=== PATIENT | male | born 1990 | race Caucasian/White ===

== ENCOUNTER 2018-02-11 19:24 | Emergency (ER) | payer OTHER ==
[2018-02-11 19:30] VITALS: BP 133/74
--- NOTE | 2018-02-11 19:49 | EDPHY ---
H & P Stated Complaint: cut R thumb on plate Source: Patient Exam Limitations: No limitations - Personal History Current Tetanus/Diphtheria Vaccine: Yes Tetanus Vaccine Date: 2016 - Medical/Surgical History Hx Asthma: No Hx Chronic Respiratory Disease: No Hx Diabetes: No Hx Cardiac Disease: No Hx Renal Disease: No Hx Cirrhosis: No Hx Alcoholism: No Hx HIV/AIDS: No Hx Splenectomy or Spleen Trauma: No Other PMH: DENIES - Social History Smoking Status: Never smoked Time Seen by Provider: 02/11/18 19:49 HPI/ROS: HPI: This is a 27-year-old male who presents with Chief Complaint: cut R thumb on plate Location: Right thumb Quality: Cut Duration: prior to arrival Signs and Symptoms: + bleeding, no radiation, no numbness, no weakness, no tingling, no incontinence, no decreased range of motion, no swelling, + pain, no fever Timing:acute Severity: moderate Context: Patient is right-hand dominant, presents with complaints of accidentally cutting his right thumb on a plate while washing dishes after eating dinner. He reports that his porcelain dish broke and cut himself in the webspace between the right thumb and pointer finger. Patient reports that the area bled moderately. He applied direct pressure and the bleeding stops. Patient reports that he received his tetanus booster in 2017. Patient denies any paresthesias, weakness, decreased range of motion. Modifying Factors: direct pressure Comment: ROS: see HPI Constitutional: No fever, no chills, no weight loss Eyes: No blurred vision Respiratory: No shortness of breath, no cough Cardiovascular: No chest pain Gastrointestinal: No nausea, no vomiting no diarrhea Genitourinary: No dysuria Extremities: No myalgias Neurologic: No weakness, no numbness Skin: No rashes Hematologic: No bruising, no bleeding MEDICAL/SURGICAL/SOCIAL HISTORY: Medical history: depression and ADD Surgical history: Denies Social history: employed. CONSTITUTIONAL: Extremely polite and cooperative young adult white male, awake and alert, no obvious distress HEENT: Atraumatic and normocephalic. EXTREMITIES: 2/2 pulses, strength 5/5, right thumb 2 inch, deep, simple laceration medial aspect near the MCP joint. DIP/PIP/MCP flexion/extension intact with good light touch sensation. no deformities, no clubbing, no cyanosis or edema. NEUROLOGICAL: no focal neuro deficits. GCS 15. Light touch sensation intact. SKIN: Warm and dry, no erythema. no rash. Good capillary refill. (Jovana Knox) Constitutional: Initial Vital Signs Temperature (C) 36.5 C 02/11/18 19:25 Heart Rate 79 02/11/18 19:25 Respiratory Rate 18 02/11/18 19:25 Blood Pressure 133/74 H 02/11/18 19:25 O2 Sat (%) 95 02/11/18 19:25 O2 Delivery Mode Room Air Allergies/Adverse Reactions: amoxicillin Allergy (Verified 04/23/16 09:50) hydrocodone Allergy (Verified 04/23/16 09:50) oxycodone Allergy (Verified 04/23/16 09:50) Home Medications: Medication Instructions Recorded Adderall 10 MG (*) 02/11/18 Lexapro 02/11/18 Propranolol Sr 02/11/18 Medical Decision Making Procedures: Procedure: Laceration repair. Verbal consent was obtained from the patient. The was anesthetized in the usual fashion using 6 mL of 1% lidocaine without epinephrine. The wound was irrigated, draped and explored to its base with a gloved finger. There were no deep structures involved. Possibility of tendon injury was identified. The wound was repaired with #9, 5-0 Prolene. The procedure was performed by myself. Procedure: Splint placement. A left thumb aluminum splint was applied by the Emergency Room graphics edit technician. After application of the splint I returned and re-examined the patient. The splint was adequately immobilizing the joint and distal to the splint the patient's circulation and sensation was intact. (Jovana Knox) ED Course/Re-evaluation: Tetanus up to date Patient understands that there is a possibility of nerve and tendon injury. Laceration closed with absorbable sutures and finger aluminum splint applied No signs of neurovascular compromise/tenting of skin/compartment syndrome/ extremities and joints examined above and below area of concern and are neurovascularly intact. In verbal wound care instructions provided to patient and counseled to follow up with Orthopedic-Hand without fail. This patient was seen under the supervision of my secondary supervising physician. I evaluated care for this patient independently. (Jovana Knox) Differential Diagnosis: Differential diagnosis includes but is limited to laceration contusion injury, tendon injury. (Jovana Knox) Other Provider: PHYSICIAN DOCUMENTATION: The patient was evaluated and managed by the Physician Wet Roller. My co- signature indicates that I have reviewed this chart and I agree with the findings and plan of care as documented. I am the secondary supervising physician. (Ottoniel Burciaga) Departure - Departure Disposition: Home, Routine, Self-Care Clinical Impression: Laceration of left thumb with tendon involvement Qualifiers: Encounter type: initial encounter Qualified Code(s): S61.012A - Laceration without foreign body of left thumb without damage to nail, initial encounter; S66.922A - Laceration of unspecified muscle, fascia and tendon at wrist and hand level, left hand, initial encounter; S66.922A - Laceration of unspecified muscle, fascia and tendon at wrist and hand level, left hand, initial encounter Condition: Good Instructions: Care For Your Stitches (ED), Laceration (ED), Tendon Rupture (ED) , Tendon Repair (DC) Additional Instructions: Keep the dressing/splint dry and in place until seen by Orthopedics-Hand Take Tylenol 650 mg every 4 hours and/or Ibuprofen 600 mg every 8 hours with food as needed for pain. Follow up with Orthopedics in 3-5 days at which time they will evaluate and recommend with you if conservative management versus surgery is indicated. Wound Care Follow-Up: Removal of sutures in [10] days. Suture removal is complimentary in uncomplicated cases. Infection or abnormal findings would require reevaluation by the MD. In that case, you may be billed. Return to the ER immediately if you experience redness, red streaks, have fevers /chills, flu like symptoms, limited range of motion, or any other symptoms that concern you. Referrals: Bernardino Baker MD [Medical Doctor] - As per Instructions
== END 2018-02-11 21:00 | disposition home or self-care (01) ==
PROC: 0HQGXZZ Repair Left Hand Skin, External Approach (ICD-10-PCS; principal; 2018-02-11)
DX: S66.922A Laceration of unspecified muscle, fascia and tendon at wrist and hand level, left hand, initial encounter (principal); W45.8XXA Other foreign body or object entering through skin, initial encounter

== ENCOUNTER 2018-05-30 18:57 | Emergency (ER) | payer OTHER ==
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
[2018-05-30] MEDS ORDERED: LET GEL TOPICAL 1 EA SYR TP ONE ×2 (19:36→19:38)
[2018-05-30 20:07] VITALS: BP 121/83
== END 2018-05-30 20:07 | disposition home or self-care (01) ==
DX: S40.211A Abrasion of right shoulder, initial encounter (principal); S06.0X9A Concussion with loss of consciousness of unspecified duration, initial encounter; V18.0XXA Pedal cycle driver injured in noncollision transport accident in nontraffic accident, initial encounter; Y92.830 Public park as the place of occurrence of the external cause